=== PATIENT | male | born 1935 | race Caucasian/White ===

== ENCOUNTER 2017-07-05 17:47 | Emergency (ER) | payer MEDICARE ==
[~2017-07-05] VITALS: Ht 170.2 cm; Wt 91.0 kg
[~2017-07-05 17:47] MED LIST: ATOR10TA15 PO; CLON1TAB PO; COQ-100C2; DESO0.254 TOPICAL; FLUO20CA4 PO; FLUT50SP EACH NARE; GABA300C5 PO; HYDR25TA5 PO; KENAAER TOPICAL; LISI-515 PO; MEPR400T4 PO; METF500T PO; MULT1POW; PRAM0.5T PO; PRIL20CA9 PO; TAMS0.4C4 PO; TRAM50TA PO
[2017-07-05 17:52] VITALS: BP 146/70; PULSE 73; RESP 16; TEMP 98.5; O2SAT 95
[2017-07-05] MEDS ORDERED: TETANUS/DIPHTHERIA TOXOID ADULT 0.5 ML VIAL IM ONE (18:00)
[2017-07-05] MEDS ORDERED: LIDOCAINE HCL 1% 50 ML VIAL INFIL ONE (18:00)
[2017-07-05] MEDS ORDERED: BUPIVACAINE HCL PF 0.5% 10 ML VIAL INFIL ONE (18:00)
--- NOTE | 2017-07-05 18:05 | PD ---
HPI Chief Complaint: Laceration/Skin Injury Time Seen by Provider: 18:00 Travel History International Travel<30 days: No Contact w/Intl Traveler<30days: No Traveled to known affect area: No History of Present Illness HPI 81-year-old male presents to the emergency room for evaluation of a crush injury to his right third finger that occurred earlier today. Patient crushed his finger between the ball and the hinge of a trailer hitch. Patient ran his finger under water but did not wash it. He applied pressure and came to the emergency room. Reports pain "in the joint" of the right third finger that is worse with range of motion. Denies paresthesias. Unknown last tetanus. He has history of diabetes. [facility] Past Medical History Cancer: No Cardiovascular Problems: No High Cholesterol: Yes Diabetes: Yes (TYPE 2) Diminished Hearing: Yes (RIGHT EAR) Endocrine: Yes Gastrointestinal Disorders: Yes Glaucoma: No Genitourinary: Yes (URINARY FREQ. ) Hepatitis: No Hiatal Hernia: No Hypertension: Yes Immune Disorder: No Musculoskeletal: Yes (SEE ABOVE, UNSTEADY GAIT AT TIMES) Neurologic: Yes (NUMBNESS TO BOTH HANDS AND FEET, SPINAL STENOSIS) Psychiatric: No Respiratory: Yes (SLEEP APNEA, USED AT MACHINE AT ONE TIME) Immunizations Current: Yes Sleep Apnea: Yes Thyroid Disease: No Past Surgical History Abdominal Surgery: Yes (PERIUMBILICAL HERNIA REPAIR) AICD: No Ear Surgery: Yes Eye Surgery: Yes (CATARACTS) Joint Replacement: No Pacemaker: No Other Surgery: Yes (REMOVAL OF ACUSTIC NEUROMA) Social History Alcohol Use: Yes (RARE) Tobacco Use: No Substance Use: No Allergies-Medications (Allergen,Severity, Reaction): Coded Allergies: No Known Allergies (Verified , 07/05/17) Reported Meds & Prescriptions Reported Meds & Active Scripts Active Keflex (Cephalexin) 500 Mg Capsule 500 Mg PO Q6H 7 Days Reported Prilosec (Omeprazole Magnesium) 20 Mg Tab 1 Tab PO DAILY Tegretol (Carbamazepine) 200 Mg Tab 400 Mg PO DAILY Gabapentin 300 Mg Cap 300 Mg PO BID Clonazepam 1 Mg Tab 1 Mg PO BID Metformin (Metformin HCl) 500 Mg Tab 500 Mg PO DAILY With a meal Pramipexole (Pramipexole Dihydrochloride) 0.5 Mg Tab 0.5 Mg PO DAILY Hydrochlorothiazide 25 Mg Tab 25 Mg PO DAILY Lisinopril 20 Mg Tab 20 Mg PO BID Atorvastatin (Atorvastatin Calcium) 10 Mg Tab 10 Mg PO HS Tamsulosin (Tamsulosin HCl) 0.4 Mg Cap 0.4 Mg PO HS Review of Systems Except as stated in HPI: all other systems reviewed are Neg Physical Exam Narrative GENERAL: Well-nourished, well-developed male in no acute distress. Afebrile. Ambulatory. SKIN: Focused skin assessment warm/dry. There is a 2 cm L-shaped laceration of the right third finger in the middle phalanx on the volar side. HEAD: Normocephalic. EYES: No scleral icterus. No injection or drainage. NECK: Supple, trachea midline. No JVD or lymphadenopathy. CARDIOVASCULAR: Regular rate and rhythm without murmurs, gallops, or rubs. RESPIRATORY: Breath sounds equal bilaterally. No accessory muscle use. EXTREMITY: Tenderness to palpation of the middle phalanx of the right third finger. Limited range of motion in the finger secondary to pain. Less than 2 second capillary refill distally. No significant edema noted. Data Data Last Documented VS Vital Signs Date Time Temp Pulse Resp B/P (MAP) Pulse Ox O2 Delivery O2 Flow Rate FiO2 07/05/17 17:52 98.5 73 16 146/70 (95) 95 Orders Orders Finger ([id number]) (07/05/17 ) Bupivacaine Pf 0.5% Inj (Marcaine Pf 0.5 (07/05/17 18:00) Lidocaine 1% Inj (50 Ml) (Xylocaine 1% I (07/05/17 18:00) Tetanus/Diphtheria Tox Adult (Tetanus/Di (07/05/17 18:00) MDM Medical Decision Making Medical Screen Exam Complete: Yes Emergency Medical Condition: Yes Medical Record Reviewed: Yes Differential Diagnosis Fracture, open fracture, contusion, abrasion Narrative Course 81-year-old male presents to the emergency room for evaluation of right third finger pain and laceration after slamming it between the ball and a trailer hitch just prior to arrival. Physical exam reveals mild edema of the right third finger with tenderness to palpation especially of the DIP joint. There is a 2 cm superficial avulsion/laceration over the middle phalanx on the volar side. Patient has limited range of motion secondary to pain. There is less than 2 second capillary refill distally. Distal sensation intact. X-ray shows minimally displaced intra-articular fracture dorsally of the DIP joint. I would not consider this an open fracture as the wound is on the opposite side of the finger and is extremely superficial. Wound was thoroughly cleansed and irrigated in the emergency room. Laceration repaired, see procedure note for details. Patient placed in splint and discharged with prescription for Keflex. Because it is intra-articular, patient was told to follow up with a hand surgeon within 1 week. He understands and agrees to plan. Procedures Procedure Narrative LACERATION LOCATION: Right third finger on the volar side in the middle phalanx. LENGTH: 2 cm NUMBER OF STITCHES/SHAGGY: 5 simple interrupted REPAIR: The area of the laceration was prepped with Betadine and sterilely draped. Digital block was performed using 1% lidocaine and 0.5% bupivacaine. The wound was copiously irrigated and explored without evidence of foreign body , tendon injury or neurovascular injury. The wound was closed using 5-0 Prolene. This was a single layer repair. A sterile dressing was applied. The patient was advised to keep the dressing clean and dry. Patient tolerated the procedure well. Diagnosis Primary Impression: Fracture, finger, distal phalanx Qualified Codes: S62.632A - Displaced fracture of distal phalanx of right middle finger, initial encounter for closed fracture Additional Impression: Finger laceration Qualified Codes: S61.212A - Laceration without foreign body of right middle finger without damage to nail, initial encounter Referrals: Hand Surgeon Additional Instructions: Keep wound clean and dry. Apply triple antibiotic ointment daily. Sutures out in 7 days. Take Tylenol as directed, as needed for pain. Keflex as directed, until gone. Apply ice to the affected area for 20 minutes at a time, as needed for pain and swelling. Follow-up with a primary care physician and/or hand surgeon within 1 week for recheck. Return to the emergency room for worsening symptoms. Scripts Cephalexin (Keflex) 500 Mg Capsule 500 MG PO Q6H for Infection for 7 Days, #28 CAP 0 Refills Prov: Dave Thornton MD 07/05/17 Disposition: 01 DISCHARGE HOME Condition: Stable Marjorie Figueroa Jul 05, 2017 18:05
[2017-07-05] MEDS ORDERED: PRIL20TA2 PO (18:08)
[2017-07-05] MEDS ORDERED: TEGR200T PO (18:08)
--- NOTE | 2017-07-05 18:46 | RADRPT ---
EXAM DATE/TIME: 07/05/2017 18:32 [place] COMPARISON: No previous studies available for comparison. INDICATIONS : Smashed finger in between trailer hitch and ball. MEDICAL HISTORY : None. SURGICAL HISTORY : None. ENCOUNTER: Initial ACUITY: 1 day PAIN SCORE: 10/10 LOCATION: Right Hand, 3rd digit. FINDINGS: An approximately 4 mm intra-articular fracture fragment is seen off of the dorsal aspect base of the long finger distal phalanx. This probably involves the distal extensor tendon attachment. The fractur e fragment has a couple millimeters of proximal displacement. No other fractures are demonstrated. No subluxations. CONCLUSION: Mildly displaced intra-articular fracture dorsally of the distal interphalangeal joint of the long fi nger. Alex Bunn MD on July 05, 2017 at 18:44 Board Certified Radiologist. This report was verified electronically.
[2017-07-05] MEDS ORDERED: CEPH-460 PO (19:46)
== END 2017-07-05 19:53 | disposition home or self-care (01) ==
LOC: PHEFT 17:47
DX: S62.632A Displaced fracture of distal phalanx of right middle finger, initial encounter for closed fracture (principal); S61.212A Laceration without foreign body of right middle finger without damage to nail, initial encounter; W23.0XXA Caught, crushed, jammed, or pinched between moving objects, initial encounter; Z23 Encounter for immunization
CPT/HCPCS: 12001; 73140; 90471; 90714

== ENCOUNTER 2017-09-20 19:34 | Emergency (ER) | payer MEDICARE ==
[~2017-09-20] VITALS: Ht 170.2 cm; Wt 91.8 kg
[~2017-09-20 19:34] MED LIST changes: +CEPH-460 PO; -COQ-100C2; -DESO0.254 TOPICAL; -FLUO20CA4 PO; -FLUT50SP EACH NARE; -KENAAER TOPICAL; -MEPR400T4 PO; -MULT1POW; -PRIL20CA9 PO; +PRIL20TA2 PO; +TEGR200T PO; -TRAM50TA PO
[2017-09-20 19:36] VITALS: BP 115/64; PULSE 87; RESP 16; TEMP 97.9; O2SAT 96
--- NOTE | 2017-09-20 19:55 | PD ---
HPI Chief Complaint: Eye Problems/Injury Time Seen by Provider: 19:49 Travel History International Travel<30 days: No Contact w/Intl Traveler<30days: No Traveled to known affect area: No History of Present Illness HPI Patient comes in complaining of possible foreign body in his left eye. Patient states he was cutting some aluminum using a flywheel when somehow thinks an unknown foreign body got past his glasses and into his eye. Patient reports irrigating his eyeball prior coming to the emergency department but still has a scratching sensation in his left eye. Denies any change in vision. Patient reports his tetanus shot is up-to-date. Denies anything making this better or worse. PFSH Past Medical History Cancer: No Cardiovascular Problems: No High Cholesterol: Yes Diabetes: Yes Patient Takes Glucophage: Yes Diminished Hearing: Yes (RIGHT EAR) Endocrine: Yes Gastrointestinal Disorders: Yes (GASTRIC REFLUX, HEARTBURN) GERD: Yes Glaucoma: No Genitourinary: Yes (URINARY FREQ. ) Hepatitis: No Hiatal Hernia: No Hypertension: Yes Immune Disorder: No Medical other: Yes (TAKES PROZAC FOR SLEEP DISORDER) Musculoskeletal: Yes ( restless legs) Neurologic: Yes (NUMBNESS TO BOTH HANDS AND FEET, SPINAL STENOSIS) Psychiatric: No Respiratory: Yes Immunizations Current: Yes Seizures: Yes Sleep Apnea: Yes Thyroid Disease: No Influenza Vaccination: Yes Past Surgical History Abdominal Surgery: Yes (PERIUMBILICAL HERNIA REPAIR) AICD: No Ear Surgery: Yes Eye Surgery: Yes (CATARACTS) Joint Replacement: No Neurologic Surgery: Yes (ACUSTIC NEUROMA) Pacemaker: No Tonsillectomy: Yes Other Surgery: Yes (REMOVAL OF ACUSTIC NEUROMA) Social History Alcohol Use: Yes (RARE) Tobacco Use: No Substance Use: No Allergies-Medications (Allergen,Severity, Reaction): Coded Allergies: No Known Allergies (Verified Adverse Reaction, Unknown, 09/20/17) Reported Meds & Prescriptions Reported Meds & Active Scripts Active Tobramycin Opth Drops 0.3 % Soln 1 Drop LEFT EYE Q4H Reported Prilosec (Omeprazole Magnesium) 20 Mg Tab 1 Tab PO DAILY Tegretol (Carbamazepine) 200 Mg Tab 400 Mg PO DAILY Gabapentin 300 Mg Cap 300 Mg PO BID Clonazepam 1 Mg Tab 1 Mg PO BID Metformin (Metformin HCl) 500 Mg Tab 500 Mg PO DAILY With a meal Pramipexole (Pramipexole Dihydrochloride) 0.5 Mg Tab 0.5 Mg PO DAILY Hydrochlorothiazide 25 Mg Tab 25 Mg PO DAILY Lisinopril 20 Mg Tab 20 Mg PO BID Atorvastatin (Atorvastatin Calcium) 10 Mg Tab 10 Mg PO HS Tamsulosin (Tamsulosin HCl) 0.4 Mg Cap 0.4 Mg PO HS Review of Systems Except as stated in HPI: all other systems reviewed are Neg Physical Exam Narrative GENERAL: Well-developed, overly nourished, in no acute distress, and non-ill appearing. SKIN: Focused skin assessment warm and dry. HEAD: Atraumatic. Normocephalic. EYES: Pupils equal and round. EOMI. No scleral icterus. No injection or drainage. ENT: No nasal bleeding or discharge. Mucous membranes pink and moist. No obvious foreign body noted. NECK: Trachea midline. Supple. No nuclear rigidity. RESPIRATORY: No accessory muscle use. No respiratory distress. MUSCULOSKELETAL: No obvious deformities. No clubbing. No cyanosis. No edema. Full range of motion. NEUROLOGICAL: Awake and alert. No obvious cranial nerve deficits. Motor grossly within normal limits. Normal speech. PSYCHIATRIC: Appropriate mood and affect; insight and judgment normal. Data Data Last Documented VS Vital Signs Date Time Temp Pulse Resp B/P (MAP) Pulse Ox O2 Delivery O2 Flow Rate FiO2 09/20/17 19:36 97.9 87 16 115/64 (81) 96 Orders Orders Proparacaine 0.5% Opth Soln (Alcaine 0.5 (09/20/17 20:00) Ed Discharge Order (09/20/17 20:07) [facility] Medical Decision Making Medical Screen Exam Complete: Yes Emergency Medical Condition: Yes Differential Diagnosis Retained foreign body, corneal abrasion, corneal ulcer, conjunctivitis Narrative Course The patient has a small corneal abrasion. The patient was Reed lamp examined and stained. No evidence of foreign body by exam. There is no evidence of iritis , glaucoma, preseptal cellulitis, periorbital or orbital cellulitis. The diagnosis and problem was discussed with the patient, and the need for frequent ophthalmologic antibiotics was discussed with the patient. The patient was instructed to follow up with ophthalmology tomorrow or return here if worsened, increased pain, decreased vision, swelling around the eye or as needed. The patient agreed with plan. Patient in no obvious distress upon re-evaluation. Patient was asked if they wanted to speak to my attending, which the patient did not wish to do at this time. Any questions/concerns in reference to patient diagnosis/condition discussed and clarified prior to patient's discharge. Reinforced sheer importance of close follow up with patient's primary physician or primary care clinic. Instructed patient to return to ED immediately, if symptoms return/ worsen. Patient showed understanding of above instructions. Further instructions and recommendations were detailed in discharge paperwork. Patient ambulated without difficulty out of ED at discharge. Procedures Procedure Narrative Verbal consent was obtained. Affected eye was anesthetized using proparacaine. Fluorescein staining and Wood lamp exam performed with small uptake seen. Negative Vincent sign. No hyphema, hyperemia, or rust ring. Eyelid was everted with no foreign body noted. No tenderness bilateral temporal arteries to palpation. Patient tolerated procedure well. 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 Take all medication as prescribed. Return to the emergency department if symptoms get worse. Med/Other Pt SpecificInfo: Prescription(s) given Scripts Tobramycin Opth Drops (Tobramycin Opth Drops) 0.3 % Soln 1 DROP LEFT EYE Q4H for Infection, #1 BOTTLE 0 Refills Prov: Yamil Mays MD 09/20/17 Disposition: 01 DISCHARGE HOME Condition: Stable Dilip Gilmore Sep 20, 2017 19:55
[2017-09-20] MEDS ORDERED: PROPARACAINE HCL 0.5% OPHT SOLN 15 ML BTL LEFT EYE ONE (20:00)
[2017-09-20] MEDS ORDERED: AK-T0.3S LEFT EYE (20:07)
== END 2017-09-20 20:25 | disposition home or self-care (01) ==
LOC: PHEFT 19:34
DX: S05.02XA Injury of conjunctiva and corneal abrasion without foreign body, left eye, initial encounter (principal); E11.9 Type 2 diabetes mellitus without complications; E78.00 Pure hypercholesterolemia, unspecified; I10 Essential (primary) hypertension; K21.9 Gastro-esophageal reflux disease without esophagitis; X58.XXXA Exposure to other specified factors, initial encounter; Y93.89 Activity, other specified; Z79.84 Long term (current) use of oral hypoglycemic drugs
CPT/HCPCS: 99283